=== PATIENT | male | born 1955 | race Caucasian/White ===

== ENCOUNTER 2023-09-20 09:17 | Emergency (ER) | payer OTHER ==
[2023-09-20 09:50] VITALS: BP 144/94; PULSE 72; RESP 16; TEMP 98.1; BMI 20.2
[2023-09-20] MEDS ORDERED: TAMSULOSIN HCL 0.4 MG CAP PO ONE (10:43)
[2023-09-20] MEDS ORDERED: TAMSULOSIN HCL 0.4 MG CAP ONE (10:58)
== END 2023-09-20 11:23 | disposition home or self-care (01) ==
LOC: FER 09:17
DX: N40.0 Benign prostatic hyperplasia without lower urinary tract symptoms (principal); R33.9 Retention of urine, unspecified; R39.15 Urgency of urination
CPT/HCPCS: 81003; 81015; 87086; 99283-25